=== PATIENT | female | born 1970 | race Caucasian/White ===

== ENCOUNTER 2019-06-22 12:46 | Emergency (ER) | payer BC ==
[2019-06-22 13:47] LABS: URINE BLOOD (Dip) POC Negative (NEGATIVE); URINE GLUCOSE (Dip) POC Negative (NEGATIVE); URINE KETONES (Dip) POC Trace (NEGATIVE); URINE LEUKOCYTE EST (Dip) POC Negative (NEGATIVE); URINE NITRITE (Dip) POC Negative (NEGATIVE); URINE TOTAL PROTEIN POC 1+ (NEGATIVE)
[2019-06-22 13:47] LABS: URINE PH (Dip) POC 8.5 (5.0-8.5)
[2019-06-22] MEDS: ACETAMINOPHEN 325 MG TAB PO (13:57)
[2019-06-22] MEDS: ONDANSETRON 4 MG INJ IV (13:57)
[2019-06-22] MEDS: SOD CHLORIDE 0.9% 500 ML IV (13:58)
[2019-06-22 14:01] LABS: ADD MAN DIFF? NO
[2019-06-22 14:06] LABS: WHITE BLOOD COUNT 10.9 10^3/ul (4.8-10.8)
[2019-06-22 14:06] LABS: BASOPHIL # 0.1 10^3/ul (0.0-0.1); BASOPHILS % 0.5 % (0.0-2.0); EOSINOPHILS # 0.1 10^3/ul (0.0-0.5); EOSINOPHILS % 0.5 % (0.0-7.0); HEMATOCRIT 41.1 % (37.0-47.0); LYMPHOCYTES # 1.7 10^3/ul (0.8-2.9); LYMPHOCYTES % 15.6 % (15.0-51.0); MEAN CORPUSCULAR HEMOGLOBIN 28.8 pg (29.0-33.0); MEAN CORPUSCULAR HGB CONC 31.6 g/dl (32.0-37.0); MEAN CORPUSCULAR VOLUME 90.9 fl (82.0-101.0); MEAN PLATELET VOLUME 9.7 fl (7.4-10.4); MONOCYTE # 0.6 10^3/ul (0.3-0.9); MONOCYTES % 5.3 % (0.0-11.0); NEUTROPHIL # 8.5 10^3/ul (1.6-7.5); NEUTROPHILS % 77.8 % (39.0-77.0); PLATELET COUNT 379 10^3/UL (140-415); RED BLOOD COUNT 4.52 10^6/ul (4.20-5.40)
[2019-06-22 14:24] LABS: ANION GAP 9 (5-13); BLOOD UREA NITROGEN 10 mg/dl (7-20); CALCIUM 9.3 mg/dl (8.4-10.2); CARBON DIOXIDE 27 mmol/L (21-31); CHLORIDE 102 mmol/L (97-110); CREATININE 0.62 mg/dl (0.44-1.00); Estimated GFR > 60 mL/min (>60); GLUCOSE 104 mg/dl (70-220); SODIUM 138 mmol/L (135-144)
[2019-06-22 18:53] LABS: URINE BLOOD (Dip) POC Negative (NEGATIVE); URINE GLUCOSE (Dip) POC Negative (NEGATIVE); URINE KETONES (Dip) POC Trace (NEGATIVE); URINE LEUKOCYTE EST (Dip) POC Negative (NEGATIVE); URINE NITRITE (Dip) POC Negative (NEGATIVE); URINE TOTAL PROTEIN POC 1+ (NEGATIVE)
[2019-06-22 18:53] LABS: URINE PH (Dip) POC 8.5 (5.0-8.5)
== END 2019-06-22 15:13 | disposition home or self-care (01) ==
LOC: FTE 15:13
DX: H81.10 Benign paroxysmal vertigo, unspecified ear (principal); Z85.3 Personal history of malignant neoplasm of breast
CPT/HCPCS: 70450; 80048; 81003; 81025; 85025; 96361; 96374; 99285-25